=== PATIENT | male | born 1955 | race Caucasian/White ===

== ENCOUNTER → 2024-07-10 | Outpatient (CLI) | payer MEDICARE, SELFPAY | END | disposition home or self-care (01) | LOC: SWHD 09:04 | PROVIDERS: Visit Provider Student in an Organized Health Care Education/Training Program | DX: T81.89XA Other complications of procedures, not elsewhere classified, initial encounter (principal); Y84.2 Radiological procedure and radiotherapy as the cause of abnormal reaction of the patient, or of later complication, without mention of misadventure at the time of the procedure; I10 Essential (primary) hypertension; M10.9 Gout, unspecified; K52.9 Noninfective gastroenteritis and colitis, unspecified; Z85.46 Personal history of malignant neoplasm of prostate | CPT/HCPCS: 99213; G0463 ==

== ENCOUNTER → 2024-07-11 | Outpatient (CLI) | payer MEDICARE, SELFPAY ==
[2024-07-11 17:23] LABS: Basophils # (Auto) 0.2 Thou/mm3 (0.0-0.2); Basophils % (Auto) 2 % (0-2.5); Eosinophils # (Auto) 0.1 Thou/mm3 (0.0-0.5); Eosinophils % (Auto) 1 % (0-10); Hematocrit 45.1 % (41.0-53.0); Hemoglobin 15.2 g/dL (13.5-16.0); Immature Granulocytes % (Auto) 1 % (0-0); Immature Granulocytes Auto 0.07 Thou/mm3 (0.00-0.00); Lymphocytes # (Auto) 1.2 Thou/mm3 (1.0-4.8); Lymphocytes % (Auto) 12 % (10-50); Mean Corpuscular HGB Conc 33.7 g/dl (31.0-37.0); Mean Corpuscular Hemoglobin 29.1 pg (25.0-35.0); Mean Corpuscular Volume 86 fL (80-100); Monocytes # (Auto) 0.6 Thou/mm3 (0.0-0.8); Monocytes % (Auto) 6 % (0-12); Neutrophils # (Auto) 7.6 Thou/mm3 (1.8-7.7); Neutrophils % (Auto) 79 % (37-80); Nucleated Red Blood Cell % 0 /100 WBC (0); Platelet Count 285 Thou/mm3 (140-440); RDW Standard Deviation 48.3 fL (35.1-43.9); Red Blood Count 5.22 Miln/mm3 (4.50-5.90); White Blood Count 9.7 Thou/mm3 (3.8-10.6)
[2024-07-11 17:44] LABS: Glucose Estimated Average 105 mg/dL (80-131); Hemoglobin A1C 5.3 % Hgb (4.8-6.0)
[2024-07-11 17:46] LABS: Alanine Aminotransferase 15 U/L (10-49); Albumin, Serum 4.9 gm/dL (3.4-4.8); Albumin/Globulin Ratio 1.9 (1.2-2.2); Alkaline Phosphatase 78 U/L (46-116); Anion Gap 11 (7-16); Aspartate Amino Transferase < 10 U/L (0-34); BUN/Creatinine Ratio 13 Ratio (12-20); Bilirubin,Total 1.5 mg/dL (0.3-1.2); Blood Urea Nitrogen 14 mg/dL (9-23); Carbon Dioxide 27.3 mMol/L (20.0-31.0); Chloride 98 mMol/L (98-107); Creatinine (Component) 1.1 mg/dL (0.6-1.3); Globulin 2.6 gm/dL (2.3-3.5); Glucose 99 mg/dL (74-106); Osmolality,Calculated 272 (275-295); Potassium 4.2 mMol/L (3.4-5.1); Sodium 136 mMol/L (136-145); Total Protein 7.5 gm/dL (5.7-8.2); eGFR > 60 See Note
== END | disposition home or self-care (01) ==
LOC: COPL 16:35
PROVIDERS: PCP Internal Medicine; Referring Provider Student in an Organized Health Care Education/Training Program; Visit Provider Student in an Organized Health Care Education/Training Program
DX: N30.40 Irradiation cystitis without hematuria (principal)
CPT/HCPCS: 36415; 80053; 83036; 85025

== ENCOUNTER 2024-07-20 13:50 | Outpatient (RCR) | payer MEDICARE, SELFPAY | END 2024-07-20 23:59 | disposition home or self-care (01) | LOC: SWHD 13:50 | PROVIDERS: PCP Internal Medicine; Referring Provider Internal Medicine; Visit Provider Surgery | DX: T81.89XA Other complications of procedures, not elsewhere classified, initial encounter (principal); Y84.2 Radiological procedure and radiotherapy as the cause of abnormal reaction of the patient, or of later complication, without mention of misadventure at the time of the procedure; I10 Essential (primary) hypertension; M10.9 Gout, unspecified; K52.9 Noninfective gastroenteritis and colitis, unspecified; Z85.46 Personal history of malignant neoplasm of prostate | CPT/HCPCS: 99212; G0277; G0463 ==

== ENCOUNTER 2024-08-15 12:00 | Outpatient (RCR) | payer MEDICARE, SELFPAY | END 2024-08-17 23:59 | disposition home or self-care (01) | LOC: SWHD 12:00 | PROVIDERS: PCP Internal Medicine; Referring Provider Internal Medicine; Visit Provider Student in an Organized Health Care Education/Training Program | DX: T81.89XA Other complications of procedures, not elsewhere classified, initial encounter (principal); Y84.2 Radiological procedure and radiotherapy as the cause of abnormal reaction of the patient, or of later complication, without mention of misadventure at the time of the procedure; I10 Essential (primary) hypertension; M10.9 Gout, unspecified; K52.9 Noninfective gastroenteritis and colitis, unspecified; Z85.46 Personal history of malignant neoplasm of prostate | CPT/HCPCS: 99212; G0277; G0463 ==

== ENCOUNTER → 2024-09-13 | Outpatient (CLI) | payer MEDICARE, SELFPAY | END | disposition home or self-care (01) | LOC: SWHD 13:19 | PROVIDERS: PCP Internal Medicine; Referring Provider Internal Medicine; Visit Provider Student in an Organized Health Care Education/Training Program | DX: T81.89XA Other complications of procedures, not elsewhere classified, initial encounter (principal); Y84.2 Radiological procedure and radiotherapy as the cause of abnormal reaction of the patient, or of later complication, without mention of misadventure at the time of the procedure; I10 Essential (primary) hypertension; K52.9 Noninfective gastroenteritis and colitis, unspecified; Z85.46 Personal history of malignant neoplasm of prostate | CPT/HCPCS: 99212; G0463 ==

== ENCOUNTER 2024-09-17 09:53 | Outpatient (RCR) | payer MEDICARE, SELFPAY | END 2024-09-17 23:59 | disposition home or self-care (01) | LOC: SWHD 09:53 | PROVIDERS: PCP Internal Medicine; Referring Provider Internal Medicine; Visit Provider Student in an Organized Health Care Education/Training Program | DX: T81.89XA Other complications of procedures, not elsewhere classified, initial encounter (principal); Y84.2 Radiological procedure and radiotherapy as the cause of abnormal reaction of the patient, or of later complication, without mention of misadventure at the time of the procedure; I10 Essential (primary) hypertension; K52.9 Noninfective gastroenteritis and colitis, unspecified; Z85.46 Personal history of malignant neoplasm of prostate | CPT/HCPCS: 99212; G0277; G0463 ==

== ENCOUNTER 2024-10-02 08:30 | Outpatient (RCR) | payer MEDICARE, SELFPAY | END 2024-10-17 23:59 | disposition home or self-care (01) | LOC: SWHD 08:30 | PROVIDERS: PCP Internal Medicine; Referring Provider Internal Medicine; Visit Provider Student in an Organized Health Care Education/Training Program | DX: T81.89XA Other complications of procedures, not elsewhere classified, initial encounter (principal); N30.80 Other cystitis without hematuria; Y84.2 Radiological procedure and radiotherapy as the cause of abnormal reaction of the patient, or of later complication, without mention of misadventure at the time of the procedure; I10 Essential (primary) hypertension; K52.9 Noninfective gastroenteritis and colitis, unspecified; Z85.46 Personal history of malignant neoplasm of prostate | CPT/HCPCS: 99212; G0277; G0463 ==

== ENCOUNTER 2025-01-23 01:14 | Emergency (ER) | payer MEDICARE, SELFPAY ==
[2025-01-23] VITALS (15 sets, daily range): BP systolic 103–128; BP diastolic 63–78; PULSE 59–78; RESP 13–24; TEMP 36.6–36.7; O2SAT 91–98; BMI 31.0
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
--- NOTE | 2025-01-23 01:45 | XR_ITS ---
Examination: AP chest single view TECHNIQUE: AP portable upright chest single view Date and time: January 23, 2025, 0219 hours INDICATIONS: Hypertension dizziness today FINDINGS: Minor prominence left ventricle Ectatic thoracic aorta. No pneumonia or pulmonary edema IMPRESSION: No pneumonia or pulmonary edema
--- NOTE | 2025-01-23 01:45 | EKG_ITS ---
[facility] Test Date: 2025-01-23 Pat Name: ISAMAR ORTEGA Department: Room: - Gender: Male [employer]: : [id number] Requested By: Storm Miner Order Number: [id number] Reading MD: Storm Miner Measurements Intervals [place] Rate: 62 P: 83 [place]: 221 QRS: 17 QRSD: 113 T: 33 QT: 408 QTc: 415 Interpretive Statements SINUS RHYTHM WITH FIRST DEGREE AV BLOCK LOW QRS VOLTAGE IN PRECORDIAL LEADS [QRS DEFLECTION < 1.0 mV IN CHEST LEADS] INCOMPLETE RIGHT BUNDLE BRANCH BLOCK [90+ ms QRS DURATION, TERMINAL R IN V1/V2, 40+ ms S IN I/aVL/V4/V5/V6] No previous ECG available for comparison /store/S0/[id number].pdf
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
[2025-01-23] MEDS: SODIUM CHLORIDE 0.9% 1000 ML 1,000 ML 999 ML IV (01:57)
[2025-01-23] MEDS: MORPHINE SULF INJ 10 MG/ML VIAL 4 MG IVP (01:57)
[2025-01-23] MEDS: ONDANSETRON INJ 2 MG/ML INJ 2 ML 4 MG IVP (01:58)
[2025-01-23 02:19] LABS: Basophils # (Auto) 0.1 Thou/mm3 (0.0-0.2); Basophils % (Auto) 1 % (0-2.5); Eosinophils # (Auto) 0.1 Thou/mm3 (0.0-0.5); Eosinophils % (Auto) 0 % (0-10); Hematocrit 43.6 % (41.0-53.0); Hemoglobin 14.7 g/dL (13.5-16.0); Immature Granulocytes Auto 0.12 Thou/mm3 (0.00-0.00); Lymphocytes # (Auto) 1.1 Thou/mm3 (1.0-4.8); Lymphocytes % (Auto) 5 % (10-50); Mean Corpuscular HGB Conc 33.7 g/dl (31.0-37.0); Mean Corpuscular Hemoglobin 29.2 pg (25.0-35.0); Mean Corpuscular Volume 87 fL (80-100); Monocytes # (Auto) 1.0 Thou/mm3 (0.0-0.8); Monocytes % (Auto) 5 % (0-12); Neutrophils # (Auto) 17.3 Thou/mm3 (1.8-7.7); Neutrophils % (Auto) 88 % (37-80); Nucleated Red Blood Cell # 0.00 Thou/mm3 (0.00-0.00); Nucleated Red Blood Cell % 0 /100 WBC (0); Platelet Count 283 Thou/mm3 (140-440); RDW Standard Deviation 49.7 fL (35.1-43.9); Red Blood Count 5.04 Miln/mm3 (4.50-5.90); White Blood Count 19.7 Thou/mm3 (3.8-10.6)
[2025-01-23 02:33] LABS: INR 1.0 (0.9-1.3); Partial Thromboplastin Time 29.6 Seconds (22.0-36.0); Prothrombin Time 10.9 Seconds (9.0-12.2)
[2025-01-23 02:44] LABS: B-Type Natriuretic Peptide 47 pg/mL (0-100)
[2025-01-23 03:40] LABS: Lactate (Lactic Acid) 1.2 mMol/L (0.4-2.0)
[2025-01-23 03:44] LABS: Alanine Aminotransferase 14 U/L (10-49); Albumin, Serum 4.4 gm/dL (3.4-4.8); Albumin/Globulin Ratio 1.8 (1.2-2.2); Alkaline Phosphatase 81 U/L (46-116); Anion Gap 11 (7-16); Aspartate Amino Transferase 13 U/L (0-34); BUN/Creatinine Ratio 10 Ratio (12-20); Bilirubin,Direct 0.6 mg/dL (0.0-0.3); Bilirubin,Total 1.7 mg/dL (0.3-1.2); Blood Urea Nitrogen 16 mg/dL (9-23); Calcium 9.5 mg/dL (8.3-10.6); Calcium (Corrected) 9.5 mg/dL (8.5-10.1); Carbon Dioxide 23.0 mMol/L (20.0-31.0); Chloride 96 mMol/L (98-107); Creatinine (Component) 1.6 mg/dL (0.6-1.3); Estimated Creatinine Clearance 60.6 mL/min (>60); Free T4 (Free Thyroxine) 1.43 ng/dL (0.89-1.76); Globulin 2.4 gm/dL (2.3-3.5); Glucose 137 mg/dL (74-106); Magnesium 1.8 mg/dL (1.6-2.6); Osmolality,Calculated 264 (275-295); Potassium 3.7 mMol/L (3.4-5.1); Procalcitonin 0.16 ng/ml (0.0-0.49); Sodium 130 mMol/L (136-145); Thyroid Stimulating Hormone 1.74 uIU/mL (0.55-4.78); Total Protein 6.8 gm/dL (5.7-8.2); Troponin I < 0.020 ng/mL (0.0-0.045); eGFR 46 See Note
[2025-01-23 03:49] LABS: Alcohol, Blood Medical < 3.0 mg/dL (0-10.0); C-Reactive Protein < 0.5 mg/dL (0.0-0.9)
[2025-01-23 04:05] LABS: Sed Rate (ESR) 13 mm/hr (0-20)
[2025-01-23 04:38] LABS: Collection Type, Urine Clean Catch
[2025-01-23 04:41] LABS: Bilirubin,Urine Negative (Negative); Blood,Urine Negative (Negative); Clarity,Urine Clear (Clear/Hazy); Color,Urine Yellow (Lt Yel-Yel); Culture Indicated,Urine Not Indicated; Glucose, Urine Negative (Negative); Hyaline Casts,Urine 2 /hpf (0-1); Ketones,Urine Negative (Negative); Leukocyte Esterase,Urine Negative (Negative); Nitrite,Urine Negative (Negative); PH,Urine 5.5 (5.0-7.0); Protein,Urine Negative (Neg - Trace); RBC,Urine 1 /hpf (0-3); Specific Gravity,Urine 1.012 (1.001-1.035); Squamous Epithelial Cell,Urine < 1 /hpf (0-5); Urobilinogen,Urine Negative mg/dL (0.0-1.0); WBC,Urine 2 /hpf (0-5)
[2025-01-23] MEDS: HYDROmorphone INJ 2 MG/ML VIAL 1 MG IVP (04:46)
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
--- NOTE | 2025-01-23 04:59 | PRELIM_ITS ---
CT scan of the head without intravenous contrast (axial sections with sagittal and coronal reformats). January 23, 2025 at 0353 hours Clinical History: Syncope and fall. Comparison: None. Findings: There is no evidence of intracranial hemorrhage, mass effect or midline shift. There are periventricular white matter hypodensities, suggestive of chronic small vessel ischemia. The CSF spaces are prominent, consistent with volume loss. The calvarium is intact. There is fluid and mucosal thickening in bilateral ethmoid and right maxillary sinuses. Impression: No evidence of intracranial hemorrhage, mass effect or calvarial fracture. Periventricular chronic small vessel ischemia and volume loss. Report Electronically Signed By: Khoi Prieto 01/23/2025 4:58:46 AM [EST]
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
--- NOTE | 2025-01-23 06:53 | PRELIM_ITS ---
CT scan of the chest, abdomen and pelvis without intravenous contrast (axial sections with sagittal and coronal reformats) January 23, 2025 0357 hours Clinical History: Fall Reference is made to the prior report dated 03/25/2020 Findings: The lungs are clear. There is no pleural effusion or pneumothorax. The thoracic aorta demonstrates atheromatous calcification without evidence of aneurysm. There is no mediastinal collection. There is no pericardial effusion. Coronary artery calcification is noted. Bilateral adrenal thickening, R<L. The liver, gallbladder, spleen, pancreas and kidneys are unremarkable on this noncontrast study. There are multiple colonic diverticula without evidence of diverticulitis. There is submucosal fat infiltration in the sigmoid colon and rectum, likely representing sequela of prior inflammation. The urinary bladder is unremarkable. There is no free fluid or free air. A small fat-containing umbilical hernia is present. No fracture is identified. The bones are osteopenic. Partially imaged cervical spinal fusion. Mild degenerative changes are identified in the spine. Old healed fracture of 7th right rib anteriorly. There is edema/hematoma in right serratus anterior muscle. Moderate hematoma in the right buttock. Impression: No visceral or bony injury to the chest, abdomen or pelvis. Edema/hematoma in right serratus anterior muscle. Moderate hematoma in the right buttock. Other findings as described above. Report Electronically Signed By: Barrington Heart 01/23/2025 6:53:12 AM [EST]
== END 2025-01-23 07:29 | disposition home or self-care (01) ==
PROVIDERS: Emergency Provider Emergency Medicine; PCP Internal Medicine
DX: R55 Syncope and collapse (principal); I10 Essential (primary) hypertension; S30.0XXA Contusion of lower back and pelvis, initial encounter; S19.9XXA Unspecified injury of neck, initial encounter; S09.90XA Unspecified injury of head, initial encounter; S29.9XXA Unspecified injury of thorax, initial encounter; S39.91XA Unspecified injury of abdomen, initial encounter; S79.911A Unspecified injury of right hip, initial encounter; R42 Dizziness and giddiness; I44.0 Atrioventricular block, first degree; I45.10 Unspecified right bundle-branch block; W19.XXXA Unspecified fall, initial encounter; Y93.89 Activity, other specified
CPT/HCPCS: 36415; 70450; 71045; 71250; 72125; 73552; 74176; 80053; 80320; 81001; 82248; 83605; 83735; 83880; 84145; 84439; 84443; 84484; 85025; 85610; 85652; 85730; 86140; 87040; 87400; 87811; 93005; 96361; 96374; 96375; 99283; J1171; J2270; J2405; J7030; G0480